=== PATIENT | female | born 1955 | race Caucasian/White ===

== ENCOUNTER → 2016-06-18 | Outpatient (CLI) | payer OTHER ==
--- NOTE | ~2016-06-18 | MY11 ---
[facility] A Service of [facility] RADIOLOGY TEXT RESULTS PATIENT: MAEVE ANNE LOCATION: [facility] : 51 UNIT #: [id number] AGE: [address]: Araceli Dejesus MD SEX: F ORDER DR: [id number] [place], [place] [address] [id number] O MR#: [id number] Acc #: [id number] NAME: MAEVE ANNE : 1955 SEX: F STUDY DATE/TIME: 06/18/2016 9:51 UNIT: [facility] ROOM: STUDY DESCRIPTION: MY Mammogram Screening Dig [place] Attending Physician: Araceli Dejesus M.D. Referring Physician: Araceli Dejesus M.D. Ordering Physician: Araceli Dejesus M.D. Primary Care Physician: Araceli Dejesus M.D. MEDICAL IMAGING REPORT This report is preliminary unless electronic signature is present EXAM Digital screening mammogram with CAD. INDICATION Routine screening. PROCEDURE Bilateral CC and MLO views obtained on a digital mammography unit. FDA-approved CAD device was utilized. COMPARISON 05/25/2008 FINDINGS Scattered fibroglandular density. No dominant mass or suspicious calcification. IMPRESSION Negative screening mammogram. Screening interval in 1 year suggested. Patients over the age of 40 are entered into a reminder system with target due date for the next mammogram. A result letter will also be sent to the patient. BIRADS: 1 Negative Dictated by... Polo Lomeli M.D. THIS IS AN ELECTRONICALLY VERIFIED REPORT Polo Lomeli M.D. at 06/19/2016 7:08 AM [facility] A Service [facility] RADIOLOGY TEXT RESULTS PATIENT: MAEVE ANNE LOCATION: [facility] : 51 UNIT #: [id number] AGE: [address]: Araceli Dejesus MD SEX: F ORDER DR: Kathryn TD: 06/18/2016 12:11 JOB #: [id number] MEDICAL IMAGING REPORT COPY
--- NOTE | ~2016-06-18 | EKG ---
PATIENT: MAEVE ANNE UNIT #: [id number] Ventricular Rate: 86 BPM Atrial Rate: 86 BPM P-R Interval: 156 ms QRS Duration: 64 ms Q-T Interval: 388 ms QTC Calculation(Bezet): 464 ms P [place]: 66 degrees Calculated R [place]: 6 degrees Calculated T [place]: 33 degrees Diagnosis Line: Normal sinus rhythm Diagnosis Line: Normal ECG Diagnosis Line: No previous ECGs available Diagnosis Line: Confirmed by ABI BERUMEN MD ([id number]) on Diagnosis Line: 06/18/2016 12:12:58 PM INTERPRETING MD: MELODIE
--- NOTE | ~2016-06-18 | US6 ---
[facility] A Service of [facility] RADIOLOGY TEXT RESULTS PATIENT: MAEVE ANEN LOCATION: [facility] : 51 UNIT #: [id number] AGE: [address]: Araceli Dejesus MD SEX: F ORDER DR: [id number] [place], [place] [address] [id number] O MR#: [id number] Acc #: [id number] NAME: MAEVE ANNE : 1955 SEX: F STUDY DATE/TIME: 06/18/2016 9:27 UNIT: [facility] ROOM: STUDY DESCRIPTION: US Abdominal Limited Attending Physician: Araceli Dejesus M.D. Referring Physician: Araceli Dejesus M.D. Ordering Physician: Araceli Dejesus M.D. Primary Care Physician: Araceli Dejesus M.D. MEDICAL IMAGING REPORT This report is preliminary unless electronic signature is present EXAM Right upper quadrant abdominal ultrasound INDICATION Upper abdominal pain. Unexplained weight gain 17 pounds over the past year. Upper abdominal pain for the past 6 months. PROCEDURE Cowart-scale and Doppler imaging right upper quadrant of the abdomen. COMPARISON None. FINDINGS Visualized portions of pancreas unremarkable. The liver measures 12.8 cm and has homogeneous echotexture. Unremarkable gallbladder. Right kidney measures 9 cm and is unremarkable. Common duct measures 3 mm. IMPRESSION Negative right upper quadrant abdominal ultrasound. Dictated by... Polo Lomeli M.D. THIS IS AN ELECTRONICALLY VERIFIED REPORT Polo Lomeli M.D. at 06/19/2016 7:08 AM JACOB/rosa TD: 06/18/2016 13:52 JOB #: [id number] MEDICAL IMAGING REPORT [facility] A Service [facility] RADIOLOGY TEXT RESULTS PATIENT: MAEVE ANNE LOCATION: [facility] : 53 UNIT #: [id number] AGE: [address]: Araceli Dejesus MD SEX: F ORDER DR: COPY
== END | disposition home or self-care (01) ==
LOC: CWCC 09:06
DX: Z12.31 Encounter for screening mammogram for malignant neoplasm of breast (principal); K82.9 Disease of gallbladder, unspecified; K76.89 Other specified diseases of liver
CPT/HCPCS: 76705; 93005; G0202